=== PATIENT | female | born 1985 | race Caucasian/White ===

== ENCOUNTER 2016-09-11 10:41 | Emergency (ER) | payer MEDICAID ==
[~2016-09-11] VITALS: Ht 167.6 cm; Wt 97.0 kg
[~2016-09-11 10:41] MED LIST: DSS100 PO; TYL3 PO
[2016-09-11] MEDS ORDERED: METHOCARBAMOL 500 MG TABLET PO ONE (13:00)
[2016-09-11] MEDS ORDERED: KETOROLAC TROMETHAMINE 60 MG/2 ML VIAL IM ONE (13:00)
[2016-09-11 15:00] VITALS: BP 128/82
== END 2016-09-11 15:05 | disposition home or self-care (01) ==
LOC: EMS 10:43
DX: M54.5 Low back pain (principal); Z91.018 Allergy to other foods
CPT/HCPCS: 96372; 99283; J1885

== ENCOUNTER 2018-05-16 20:44 | Emergency (ER) | payer OTHER, MEDICAID ==
[~2018-05-16] VITALS: Ht 160 cm; Wt 75.0 kg
[2018-05-17] MEDS ORDERED: TraMADol HCL 50 MG TABLET PO ONE
[2018-05-17 00:36] VITALS: BP 124/71
== END 2018-05-17 00:37 | disposition home or self-care (01) ==
LOC: EMS 20:45
DX: S63.502A Unspecified sprain of left wrist, initial encounter (principal); X58.XXXA Exposure to other specified factors, initial encounter; Y93.89 Activity, other specified; Y92.89 Other specified places as the place of occurrence of the external cause; Y99.8 Other external cause status

== ENCOUNTER 2019-10-29 02:35 | Emergency (ER) | payer MEDICAID, OTHER ==
[~2019-10-29] VITALS: Ht 160 cm; Wt 90.9 kg
[2019-10-29] MEDS ORDERED: ONDANSETRON HCL 4 MG/2 ML VIAL IVP ONE (04:30)
[2019-10-29] MEDS ORDERED: CefTRIAXone 1 GM/DEXTROSE 50 ML IV ONE (04:30)
[2019-10-29] MEDS ORDERED: SODIUM CHLORIDE 0.9% 2,000 ML IV ONE (04:30)
[2019-10-29] MEDS ORDERED: KETOROLAC TROMETHAMINE 30 MG/ML VIAL IVP ONE (04:30)
[2019-10-29 04:31] LABS: ANION GAP 5 mmol/L (8-16); CARBON DIOXIDE 30 mmol/L (22-29); CHLORIDE 98 mmol/L (98-107); CREATININE 0.94 mg/dL (0.60-1.30); GLOMERULAR FILTR. RATE CALC > 60 mL/min (>60); GLUCOSE,RANDOM 130 mg/dL (70-110); POTASSIUM 3.5 mmol/L (3.5-5.1); SODIUM SERUM 133 mmol/L (136-145); UREA NITROGEN, BLOOD 10 mg/dL (7-18)
[2019-10-29 04:38] LABS: BASOPHILS % (AUTO) 0.3 % (0.0-2.0); EOSINOPHILS % (AUTO) 4.4 % (1.0-6.0); HEMATOCRIT 37.6 % (36-46); HEMOGLOBIN 12.1 g/dL (12.0-16.0); LYMPHOCYTES # (AUTO) 2.7 K/uL (1.0-4.8); LYMPHOCYTES % (AUTO) 20.8 % (22.0-44.0); MEAN CORPUSCULAR HEMOGLOBIN 24.6 pg (26.0-34.0); MEAN CORPUSCULAR HGB CONC 32.3 G/dL (31.0-37.0); MEAN CORPUSCULAR VOLUME 76 fL (80-100); MONOCYTES # (AUTO) 1.3 K/uL (0.1-1.0); MONOCYTES % (AUTO) 10.4 % (2.0-9.0); NEUTROPHILS # (AUTO) 8.1 K/uL (1.8-7.7); NEUTROPHILS % (AUTO) 64.1 % (40.0-70.0); PLATELET COUNT (AUTO) 291 K/uL (150-450); RED BLOOD CELL COUNT(AUTO) 4.94 MIL/uL (4.00-5.20); RED CELL DISTRIBUTION WIDTH 14.8 % (11.5-14.5)
[2019-10-29 04:42] LABS: ALANINE AMINOTRANSFERASE 190 U/L (12-78); ALBUMIN 3.7 g/dL (3.4-5.0); ALKALINE PHOSPHATASE 111 U/L (46-116); ASPARTATE AMINOTRANSFERASE 71 U/L (15-37); BILIRUBIN,TOTAL 0.4 mg/dL (0.1-1.0); HCG,QUANTITATIVE < 1 mIU/mL (0-6); TOTAL PROTEIN, SERUM 8.6 g/dL (6.4-8.2)
[2019-10-29] MEDS ORDERED: HYDROmorphone 2 MG/ML SYRINGE ONE (05:00)
[2019-10-29] MEDS ORDERED: HYDROmorphone 2 MG/ML SYRINGE IVP ONE (05:15)
[2019-10-29] MEDS ORDERED: NEOMYCIN/POLYMYXIN B/HYDROCORT 10 ML OTIC SUSPENSION AD ONE (05:30)
[2019-10-29 06:36] VITALS: BP 132/80
[2019-10-29 06:40] LABS: APPEARANCE,CSF CLEAR (CLEAR); COLOR,CSF COLORLESS (COLORLESS); CSF TOTAL VOLUME 5.5 mL; CSF TUBE NUMBER 1
[2019-10-29 06:41] LABS: APPEARANCE2,CSF CLEAR (CLEAR); COLOR2,CSF COLORLESS (COLORLESS); CSF 2ND TUBE NUMBER 4
[2019-10-29 06:52] LABS: GLUCOSE, CSF 98 mg/dL (50-80); TOTAL PROTEIN, CSF 25 mg/dL (15-45)
[2019-10-29 07:02] LABS: LYMPHOCYTES1,CSF 60 %; LYMPHOCYTES2,CSF 0 %; MONOCYTES1,CSF 0 %; MONOCYTES2,CSF 0 %; NEUTROPHILS1,CSF 40 %; NEUTROPHILS2,CSF 0 %; OTHER CELLS,CSF 0; OTHER CELLS,CSF 2ND 0
== END 2019-10-29 07:15 | disposition home or self-care (01) ==
LOC: EMS 02:35
DX: R51 Headache (principal); H60.91 Unspecified otitis externa, right ear; R42 Dizziness and giddiness; R50.9 Fever, unspecified; R21 Rash and other nonspecific skin eruption; K76.0 Fatty (change of) liver, not elsewhere classified; R94.5 Abnormal results of liver function studies; Z20.828 Contact with and (suspected) exposure to other viral communicable diseases; Z88.6 Allergy status to analgesic agent; Z88.4 Allergy status to anesthetic agent; Z91.018 Allergy to other foods
CPT/HCPCS: 36415; 62270; 80053; 82945; 83605; 84157; 84702; 85025; 87040; 87070; 87205; 89051; 96365; 96375; 99285; J0696; J1170; J1885; J2405; J7030; U0003

== ENCOUNTER 2019-11-01 01:58 | Emergency (ER) | payer MEDICAID ==
[~2019-11-01] VITALS: Ht 163.8 cm; Wt 90.9 kg
[2019-11-01] MEDS ORDERED: HYDR-3709 PO (02:01)
[2019-11-01] MEDS ORDERED: KETOROLAC TROMETHAMINE 60 MG/2 ML VIAL IM ONE (03:15)
[2019-11-01 03:26] VITALS: BP 127/67
== END 2019-11-01 03:54 | disposition home or self-care (01) ==
LOC: EMS 01:58
DX: H60.91 Unspecified otitis externa, right ear (principal); Z88.6 Allergy status to analgesic agent; Z88.4 Allergy status to anesthetic agent; Z91.018 Allergy to other foods
CPT/HCPCS: 96372; 99283; J1885

== ENCOUNTER 2023-12-11 18:27 | Emergency (ER) | payer MEDICAID, OTHER ==
[~2023-12-11] VITALS: Ht 157.5 cm; Wt 90.0 kg
[~2023-12-11 18:27] MED LIST changes: -DSS100 PO; +HYDR-3709 PO; -TYL3 PO
[2023-12-11 18:34] LABS: COVID AG,FIA SOURCE NASAL SWAB
[2023-12-11 19:02] LABS: SARS-COV2 (COVID) ANTIGEN,FIA Negative (Negative)
[2023-12-11 19:05] LABS: INFLUENZA TYPE A NEGATIVE FOR TYPE A (NEGATIVE); INFLUENZA TYPE B NEGATIVE FOR TYPE B (NEGATIVE)
[2023-12-11 19:10] LABS: BASOPHILS % (AUTO) 0.3 % (0.0-2.0); EOSINOPHILS % (AUTO) 7.7 % (1.0-6.0); HEMATOCRIT 36.1 % (36-46); HEMOGLOBIN 11.2 g/dL (12.0-16.0); LYMPHOCYTES % (AUTO) 30.6 % (22.0-44.0); MEAN CORPUSCULAR HEMOGLOBIN 22.5 pg (26.0-34.0); MEAN CORPUSCULAR HGB CONC 31.1 G/dL (31.0-37.0); MEAN CORPUSCULAR VOLUME 73 fL (80-100); MONOCYTES % (AUTO) 7.8 % (2.0-9.0); NEUTROPHILS % (AUTO) 53.6 % (40.0-70.0); PLATELET COUNT (AUTO) 355 K/uL (150-450); RED BLOOD CELL COUNT(AUTO) 4.98 MIL/uL (4.00-5.20); RED CELL DISTRIBUTION WIDTH 16.4 % (11.5-14.5)
[2023-12-11 19:12] LABS: ANION GAP 11 mmol/L (8-16); CALCIUM, TOTAL 8.5 mg/dL (8.8-10.5); CARBON DIOXIDE 26 mmol/L (22-29); CHLORIDE 101 mmol/L (98-107); CREATININE 0.63 mg/dL (0.60-1.30); GLOMERULAR FILTR. RATE CALC > 60 mL/min (>60); GLUCOSE,RANDOM 88 mg/dL (70-110); POTASSIUM 3.4 mmol/L (3.5-5.1); SODIUM SERUM 138 mmol/L (136-145); UREA NITROGEN, BLOOD 11 mg/dL (7-18)
[2023-12-11 19:20] LABS: TROPONIN I-HIGH SENSITIVITY Less Than 4 ng/L (<51)
[2023-12-11 19:31] LABS: B-TYPE NATRIURETIC PEPTIDE < 5 pg/mL (0-100)
[2023-12-11 19:53] LABS: RBC MORPHOLOGY COMMENT ABNORMAL RBC MORPH
[2023-12-11 20:29] VITALS: TEMP 98.6
[2023-12-11] MEDS: ALBUTEROL SULFATE 2.5 MG/0.5 ML NEB SOLUTION NEB ONE (20:29)
[2023-12-11] MEDS: IPRATROPIUM BROMIDE 0.5 MG/2.5 ML NEB SOLUTION NEB ONE (20:29)
[2023-12-11] MEDS ORDERED: ALBU18HF12 IH (20:59)
[2023-12-11] MEDS ORDERED: PRED20TA3 PO (21:00)
[2023-12-11] MEDS: PredniSONE 20 MG TABLET PO ONE (21:07)
[2023-12-11 21:15] VITALS: BP 118/75; PULSE 71; RESP 17; O2SAT 98
== END 2023-12-11 21:21 | disposition home or self-care (01) ==
LOC: EMS 18:27
DX: J45.909 Unspecified asthma, uncomplicated (principal); R06.02 Shortness of breath; R05.9 Cough, unspecified; Z88.4 Allergy status to anesthetic agent; Z88.8 Allergy status to other drugs, medicaments and biological substances; Z20.822 Contact with and (suspected) exposure to COVID-19
CPT/HCPCS: 99284; 71045; 87426; 80048; 83880; 84484; 85025; 87804; 36415; 94640; J7512; J7613